=== PATIENT | female | born 1950 | race Caucasian/White ===

== ENCOUNTER 2017-03-19 02:02 | Emergency (ER) | payer BC, MEDICARE ==
--- NOTE | ~2017-03-19 | CR141 ---
[facility] A Service [facility] RADIOLOGY TEXT RESULTS PATIENT: JODEE WASHINGTON LOCATION: SED : 54 UNIT #: [id number] AGE: [address]: Freddie Degroot MD SEX: F ORDER DR: [id number] [place] [id number] [id number] E MR#: [id number] Acc #: [id number] NAME: JODEE WASHINGTON : 1950 SEX: F STUDY DATE/TIME: 03/19/2017 2:46 UNIT: SED ROOM: STUDY DESCRIPTION: CR Hand Min 3 Views Lt Attending Physician: Freddie Degroot M.D. Ordering Physician: Freddie Degroot M.D. Primary Care Physician: Chan Araya M.D. MEDICAL IMAGING REPORT This report is preliminary unless electronic signature is present. EXAM Left hand, 03/19/2017 HISTORY 67-year-old female in the ED complaining of left hand pain and swelling after injury working in the garden today. TECHNIQUE Three-view left hand series. FINDINGS No fracture, dislocation or other acute osseous abnormality is demonstrated. Soft tissue swelling is visible over the dorsal aspect of the hand and wrist. IMPRESSION Dorsal soft tissue swelling. Left hand and wrist series is otherwise negative. Dictated by... Manav Lockwood M.D. THIS IS AN ELECTRONICALLY VERIFIED REPORT Manav Lockwood M.D. at 03/19/2017 5:52 AM FAM/cristiane TD: 03/19/2017 03:50 JOB #: [id number] MEDICAL IMAGING REPORT [facility] A Service [facility] RADIOLOGY TEXT RESULTS PATIENT: JODEE WASHINGTON LOCATION: SED : 54 UNIT #: [id number] AGE: [address]: Freddie Degroot MD SEX: F ORDER DR: Page 1 of 1
[~2017-03-19 02:02] MED LIST: ALBUTEROL17 GM INH; ALPRAZOLAM PO; AMBIEN PO; AMITRYPTYLINE PO; COUMADIN PO; CYMBALTA PO; DIOVAN HCT 80/11 TAB PO; FERROUS SULFATE PO; FLEXERIL PO; KCL PO; LASIX PO; LEVSIN PO; PERCOCET7.5 PO; PROTONIX PO; REGLAN PO; STARLIX PO; SYNTHROID PO; TOPROL XL PO; VENTOLIN INH; ZOCOR PO
[2017-03-19 02:53] LABS: BASOPHIL# 0.1 X10e3 (0-0.3); BASOPHIL% 1.1 % (0-2.5); EOSINOPHIL# 0.4 X10e3 (0-0.7); EOSINOPHIL% 4.6 % (0.0-7.0); HEMOGLOBIN 11.4 gm/dL (12.0-16.0); LYMPHOCYTE% 38.6 % (17.0-45.0); MEAN CELL VOLUME 92.4 FL (83-96); MEAN CORPUSCULAR HGB CONC 33.5 g/dL (30-36); MEAN PLATELET VOLUME 6.5 FL (6.5-11.5); MONOCYTE% 12.6 % (3.0-12.0); NEUTROPHIL# 3.4 X10e3 (1.5-7.1); NEUTROPHIL% 43.1 % (40-75); PLATELET COUNT 256 X10e3 (140-420); RED BLOOD COUNT 3.67 X10e (3.90-5.30); RED CELL DISTRIBUTION WIDTH 12.3 % (11.0-15.5); WHITE BLOOD COUNT 7.8 X10e3 (4.0-10.5)
[2017-03-19 02:58] LABS: DIFF IND NO
[2017-03-19 03:03] LABS: INR 0.9
[2017-03-19 03:10] LABS: CALCIUM SERUM 9.8 mg/dL (8.4-10.2); GLOM FILT RATE Estimated 59.1 mL/min (>60); PARTIAL THROMBOPLASTIN TIME 23.4 SECONDS (25.6-38.1); POTASSIUM 4.3 mmol/L (3.5-5.1)
== END 2017-03-19 03:28 | disposition home or self-care (01) ==
LOC: SED 02:02
PROVIDERS: Emergency Medicine
DX: S60.222A Contusion of left hand, initial encounter (principal); F17.200 Nicotine dependence, unspecified, uncomplicated; Z88.1 Allergy status to other antibiotic agents; Z88.8 Allergy status to other drugs, medicaments and biological substances; Z79.899 Other long term (current) drug therapy; X58.XXXA Exposure to other specified factors, initial encounter; Y92.009 Unspecified place in unspecified non-institutional (private) residence as the place of occurrence of the external cause
CPT/HCPCS: 29125; 36415; 73130; 80048; 85025; 85610; 85730; 90715; 99283